=== PATIENT | male | born 1950 | race Caucasian/White ===

== ENCOUNTER 2021-11-01 05:34 | Inpatient (IN) | payer MEDICARE, MEDICAID ==
[2021-11-01] MEDS ORDERED: Sodium Chloride 0.9% 1,000 ML IV ONE ×2 (06:46→08:30)
[2021-11-01] MEDS ORDERED: Sodium Chloride 0.9% 1,000 ML ONE ×3 (06:56→11:44)
[2021-11-01 08:23] LABS: ANION GAP 9.4 mmol/L (5-15)
[2021-11-01] MEDS ORDERED: Ciprofloxacin in D5W 400 MG in Premix Bag 1 BAG IV ONE ×2 (11:03)
[2021-11-01] MEDS ORDERED: Acetaminophen 325 MG Tab PO PRN ×2 (11:56→12:04)
[2021-11-01] MEDS ORDERED: Sodium Chloride 0.9% 500 ML IV SCH (12:00)
[2021-11-01] MEDS ORDERED: Polyethylene Glycol 3350 Powder 17 GM Packet PO PRN (12:04)
[2021-11-01] MEDS ORDERED: Ibuprofen 600 MG Tab PO PRN (12:12)
[2021-11-01] MEDS: Diclofenac Sodium 1% Gel 100 GM Tube TOP SCH ×3 (13:31→20:00)
[2021-11-01] MEDS: ClonazePAM 0.5 MG Tab PO SCH ×2 (14:30→20:00)
[2021-11-01] MEDS: Sodium Chloride 0.9% 1,000 ML IV SCH ×3 (16:22→22:33)
[2021-11-01] MEDS: risperiDONE 1 MG Tab PO SCH (20:00)
[2021-11-01] MEDS: OLANZapine 5 MG Tab PO SCH (20:00)
[2021-11-01] MEDS ORDERED: Sodium Chloride 0.9% 500 ML IV ONE ×2 (20:09→22:02)
[2021-11-01] MEDS: Ciprofloxacin in D5W 400 MG in Premix Bag 1 BAG IV SCH ×2 (22:44)
[2021-11-02 00:12] LABS: ANION GAP 8.3 mmol/L (5-15)
[2021-11-02 00:31] LABS: O2 DELIVERY DEVICE ROOM AIR
[2021-11-02 00:32] LABS: BASE EXCESS ARTERIAL -2 mmol/L (-2-3); BICARBONATE,ARTERIAL 21.9 mmol/L (22-26); O2 SATURATION ARTERIAL 94 % (95-98); PCO2 ARTERIAL 35 mmHG (35-45); PO2 ARTERIAL 70 mmHG (80-105)
[2021-11-02] MEDS: Sodium Chloride 0.9% 1,000 ML IV SCH ×3 (02:44→17:04)
[2021-11-02 08:20] LABS: ANION GAP 8.6 mmol/L (5-15)
[2021-11-02] MEDS: ClonazePAM 0.5 MG Tab PO SCH ×2 (08:24→20:00)
[2021-11-02] MEDS: Finasteride 5 MG Tab PO SCH (08:24)
[2021-11-02] MEDS: risperiDONE 1 MG Tab PO SCH ×2 (08:24→20:00)
[2021-11-02] MEDS: Diclofenac Sodium 1% Gel 100 GM Tube TOP SCH ×4 (09:10→20:01)
[2021-11-02] MEDS: Menthol/Zinc Oxide Ointment 113 GM Tube TOP SCH ×2 (11:04→20:00)
[2021-11-02] MEDS: Enoxaparin 40 MG/0.4 ML Syringe SUBCUT SCH (11:04)
[2021-11-02] MEDS: Ciprofloxacin in D5W 400 MG in Premix Bag 1 BAG IV SCH ×4 (11:05→22:21)
[2021-11-02] MEDS: Metoprolol Succinate 50 MG Tab.ER PO SCH (11:07)
[2021-11-02] MEDS: [UNRECOGNIZED DRUG - REMARK] PO SCH ×2 (11:07→20:00)
[2021-11-02] MEDS: OLANZapine 5 MG Tab PO SCH (20:00)
[2021-11-03] MEDS: Sodium Chloride 0.9% 1,000 ML IV SCH ×2 (01:06→08:16)
[2021-11-03] MEDS: Pantoprazole 20 MG Tab, Delayed Release PO SCH ×2 (05:59→06:30)
[2021-11-03 08:13] LABS: ANION GAP 3.4 mmol/L (5-15)
[2021-11-03] MEDS: [UNRECOGNIZED DRUG - REMARK] PO SCH ×2 (08:21→21:30)
[2021-11-03] MEDS: ClonazePAM 0.5 MG Tab PO SCH ×2 (08:22→21:32)
[2021-11-03] MEDS: Finasteride 5 MG Tab PO SCH (08:22)
[2021-11-03] MEDS: risperiDONE 1 MG Tab PO SCH ×2 (08:23→21:31)
[2021-11-03] MEDS: Metoprolol Succinate 50 MG Tab.ER PO SCH (08:24)
[2021-11-03] MEDS: Menthol/Zinc Oxide Ointment 113 GM Tube TOP SCH ×2 (09:20→21:36)
[2021-11-03] MEDS ORDERED: Sodium Chloride 0.9% 1,000 ML IV SCH (09:45)
[2021-11-03] MEDS: Diclofenac Sodium 1% Gel 100 GM Tube TOP SCH ×4 (11:16→21:33)
[2021-11-03] MEDS: Enoxaparin 40 MG/0.4 ML Syringe SUBCUT SCH (11:22)
[2021-11-03] MEDS: Ciprofloxacin in D5W 400 MG in Premix Bag 1 BAG IV SCH ×6 (11:22→22:08)
[2021-11-03] MEDS ORDERED: Furosemide 40 MG/4 ML VIAL IVPUSH ONE (12:25)
[2021-11-03] MEDS: OLANZapine 5 MG Tab PO SCH (21:31)
[2021-11-04] MEDS: Pantoprazole 20 MG Tab, Delayed Release PO SCH ×2 (06:00→06:29)
[2021-11-04] MEDS: risperiDONE 1 MG Tab PO SCH (09:26)
[2021-11-04] MEDS: ClonazePAM 0.5 MG Tab PO SCH (09:27)
[2021-11-04] MEDS: Finasteride 5 MG Tab PO SCH (09:27)
[2021-11-04] MEDS: [UNRECOGNIZED DRUG - REMARK] PO SCH (09:29)
[2021-11-04] MEDS: Metoprolol Succinate 50 MG Tab.ER PO SCH (09:29)
[2021-11-04] MEDS: Diclofenac Sodium 1% Gel 100 GM Tube TOP SCH (09:30)
[2021-11-04] MEDS: Menthol/Zinc Oxide Ointment 113 GM Tube TOP SCH (09:30)
[2021-11-04] MEDS ORDERED: Lisinopril 20 MG Tab PO SCH (10:15)
[2021-11-04] MEDS ORDERED: amLODIPine 5 MG Tab PO SCH (10:15)
[2021-11-04] MEDS: Enoxaparin 40 MG/0.4 ML Syringe SUBCUT SCH (11:06)
[2021-11-04] MEDS: Ciprofloxacin in D5W 400 MG in Premix Bag 1 BAG IV SCH ×2 (11:06)
[2021-11-04] MEDS ORDERED: Ciprofloxacin 500 MG Tab PO ONE (21:00)
== END 2021-11-04 13:30 | DRG 690 ==
LOC: KA.ED 05:34 → SUPCPDRO 05:34 → KA.MS 11:19 → UNDOADMOB 11:19 → KA.MS 11-02 09:04 → OBSVTOIN 11-02 09:04 → INTOOBSV 11-02 09:04
PROVIDERS: ADMIT Nurse Practitioner Family; ATTEND Nurse Practitioner Family
DX: N30.01 Acute cystitis with hematuria (principal); N39.0 Urinary tract infection, site not specified; R06.82 Tachypnea, not elsewhere classified; Z93.6 Other artificial openings of urinary tract status; S32.019A Unspecified fracture of first lumbar vertebra, initial encounter for closed fracture; R78.81 Bacteremia; Z79.899 Other long term (current) drug therapy; I95.9 Hypotension, unspecified; L98.419 Non-pressure chronic ulcer of buttock with unspecified severity; E88.09 Other disorders of plasma-protein metabolism, not elsewhere classified; F20.9 Schizophrenia, unspecified; S30.813A Abrasion of scrotum and testes, initial encounter; X58.XXXA Exposure to other specified factors, initial encounter; M51.36 Other intervertebral disc degeneration, lumbar region; B96.5 Pseudomonas (aeruginosa) (mallei) (pseudomallei) as the cause of diseases classified elsewhere; K59.00 Constipation, unspecified; R33.9 Retention of urine, unspecified; Z20.822 Contact with and (suspected) exposure to COVID-19
CPT/HCPCS: 36415; 36600; 51702; 71045; 80053; 81001; 82803; 83605; 83880; 84145; 85025; 86140; 87040; 87086; 87088; 87186; 96361; 96365; 96376; 99284; 99285-25; A9270-GY; G0378; J0744; J1650; J1940; J7030; J7040; U0002